=== PATIENT | female | born 1955 | race Two or more races ===

== ENCOUNTER 2021-03-06 09:26 | Outpatient (CLI) | payer OTHER | END 2021-03-06 11:08 | disposition home or self-care (01) | LOC: SONOGRAMA 09:26 | PROVIDERS: ATTEND Pathology Anatomic Pathology & Clinical Pathology | DX: E07.89 Other specified disorders of thyroid (principal); E04.2 Nontoxic multinodular goiter ==

== ENCOUNTER 2021-06-22 07:42 | Outpatient (CLI) | payer OTHER | END 2021-06-22 07:49 | disposition home or self-care (01) | LOC: SONOGRAMA 07:42 | PROVIDERS: ATTEND Pathology Anatomic Pathology & Clinical Pathology | DX: M54.6 Pain in thoracic spine (principal); M54.9 Dorsalgia, unspecified ==